=== PATIENT | female | born 1975 | race Asian ===

== ENCOUNTER 2025-03-11 09:47 | Emergency (ER) | payer OTHER ==
[~2025-03-11] VITALS: Ht 139.7 cm; Wt 45.5 kg
[2025-03-11 09:55] VITALS: TEMP 97.8
[2025-03-11 10:18] LABS: UA COLLECTION TYPE CLN CATCH MIDSTREAM
[2025-03-11] MEDS ORDERED: ONDA-243 PO (10:18)
--- NOTE | 2025-03-11 10:18 | Physician Documentation ---
History of Present Illness ~ Chief Complaint: Urinary Symptoms Stated Complaint: ABDOMINAL PAIN Time Seen by MD: 10:01 HPI Otherwise healthy 49-year-old female who presents to the emergency department for re-evaluation of urinary tract infection. Seen in a local emergency d epartment yesterday and prescribed Bactrim for UTI. Since being homeless developed some myalgias some other B symptoms with mild nausea. No flank pain and no reported fever. Medication Reconciliation Allergies: Coded Allergies: amoxicillin (Verified Allergy, Intermediate, RASH, 03/11/25) PER RHONDA Scheduled PRN ONDANSETRON ODT 4mg tablet (Ondansetron Odt), 1 TAB PO Q6H PRN PRN for nausea/vomiting Review of Systems All Other Systems at this time: Reviewed and Negative Constitutional: Reports: see HPI Physical Exam Vital Signs: RN Vital Signs have been reviewed: Yes, Temperature: 97.8, Source: Temporal, Heart Rate: 90, Respiratory Rate: 16, BP: 102/78, Pulse Oximetry: 99, Weight: 45.500 General Appearance: alert, WD/WN, mild distress EENT: PERRL/EOMI Neck: normal inspection Respiratory: lungs clear Chest: no accessory muscle use Cardiovascular: normal peripheral pulses Gastrointestinal: non-tender Back: normal inspection, no CVA tenderness Rectal: deferred Extremities: normal range of motion Neurologic: oriented x4 Psychiatric: normal mood/affect Skin: normal color Progress Results/Orders Results/Orders Completed Orders - JESUS MOSQUEDA PAC Ceftriaxone Im Kit W/Lidocaine (Rocephin (03/11/25 10:05) Ondansetron Disint. Tablet (Zofran Odt T (03/11/25 10:05) Ketorolac Trometh 15mg/Ml Vial (Toradol (03/11/25 10:20) Medications Received in ER Medications (Trade) Dose Ordered Sig/Shazia Route PRN Reason Start Time Stop Time Status Last Admin Dose Admin (Rocephin 1GM IM kit (w/lidocaine diluent)) 1,000 mg ONCE ONCE IM 03/11/25 10:05 03/11/25 10:06 DC 03/11/25 10:22 1,000 MG (Zofran ODT tablet) 4 mg ONCE ONCE PO 03/11/25 10:05 03/11/25 10:06 DC 03/11/25 10:21 4 MG (Toradol injection) 15 mg ONCE ONCE IM 03/11/25 10:20 03/11/25 10:21 DC 03/11/25 10:22 15 MG Vital Signs 03/11/25 03/11/25 09:55 10:22 Temp 97.8 Pulse 90 Resp 16 16 B/P (MAP) 102/78 Pulse Ox 99 Laboratory Tests Test 03/11/25 10:03 Urine Specimen Description Cln catch midstream Urine Color [place] Urine Clarity Slightly cloudy Urine pH Urine Specific [place] Urine Protein Urine Glucose (UA) Urine Ketones Urine Occult Blood Urine Nitrite Urine Bilirubin Urine Urobilinogen Urine Leukocyte Esterase Urine RBC None seen Urine WBC 5-10 H Urine Squamous Epithelial Cells Moderate Urine Bacteria 2+ Urine Mucus Few Urine Culture Indicated Indicated Volume Urine Centrifuged 1 ml Urine HCG, Qualitative Negative Urine Comment Low volume Medical Decision Making Additional information obtaine: N/A Findings Examination history consistent with urinary tract infection with possible early pyelo presentation. We will provide ceftriaxone and Zofran in the emergency department. Patient normotensive without tachycardia or fever. Safe for outpatient discharge. We will provide Zofran and encourage fluids for patient. Urinary Diff Dx:Considerations: Include: AAA, , Aortic dissection, Appendicitis, Bowel obstruction, Cholelithiasis, Choleangitis, DJD, Ectopic , Hepatitis, HNP, Impaction, Intrauterine , Musculoskeletal pain, Ovarian torsion, Pancreatitis, PID, Post-Op complication, Pyelonephritis, Renal failure, Strain, Urinary Obstruction, Urolithiasis, Urinary retention, UTI, Vaginitis, Other Genital Diff Dx:Considerations: Include: Other (Noncontributory) Departure Disposition: 01 HOME / SELF CARE / HOMELESS Impression: Primary Impression: Acute urinary tract infection Discharge Instructions: Urinary Tract Infection, Adult Additional Instructions: In the emergency department received an injection of Ceftriaxone along with Zofran. I have sent prescriptions to your pharmacy. Please begin as directed and follow up with the primary care physician and/or return to the emergency department symptoms worsen. Please take Tylenol or ibuprofen for discomfort. Please stay well hydrated. Thank you for visiting [facility]. Referrals: NO PRIMARY CARE PROVIDER (PCP) Prescriptions ONDANSETRON ODT 4mg tablet (ONDANSETRON ODT) 4 Mg Tab.rapdis 1 TAB PO Q6H PRN PRN for nausea/vomiting for 4 Days, #16 TAB 0 Refills Prov: JESUS MOSQUEDA PAC 03/11/25 Education Educated: Patient Educated regarding: diagnosis, treatment, prognosis, need for follow up Signature Scribe Signature: . Attestation: . JESUS MOSQUEDA PAC Mar 11, 2025 10:18
[2025-03-11 10:19] LABS: MUCUS STRANDS FEW /LPF (Neg); SQUAMOUS EPITHELIAL CELL,UR MODERATE /LPF (FEW)
[2025-03-11] MEDS: ondansetron 4mg rapidly disintigrating tab PO ONE (10:21)
[2025-03-11 10:22] LABS: URINE HCG NEGATIVE (NEG)
[2025-03-11] MEDS: ketorolac trometh 15mg/ml vial 15 MG/ML ML IM ONE (10:22)
[2025-03-11] MEDS: CefTRIAXone 1000mg IM Kit (w/lidocaine diluent) IM ONE (10:22)
[2025-03-11 10:35] VITALS: BP 97/62; PULSE 72; O2SAT 95
[2025-03-11 10:37] VITALS: RESP 16
== END 2025-03-11 10:39 | disposition home or self-care (01) ==
LOC: ER 09:48
DX: N39.0 Urinary tract infection, site not specified (principal); Z59.00 Homelessness unspecified; Z88.1 Allergy status to other antibiotic agents
CPT/HCPCS: 81001; 81025; 87088; 96372; 99284; J0696; J1885